=== PATIENT | female | born 1960 | race Caucasian/White ===

== ENCOUNTER 2017-08-24 11:50 | Inpatient (IN) | payer SELFPAY ==
[~2017-08-24] VITALS: Ht 165.1 cm; Wt 89.8 kg
[2017-08-24 12:47] LABS: HEMATOCRIT 30.5 % (36-48); MEAN CORPUSCULAR HEMOGLOBIN 22.9 pg (27.0-33.0); MEAN CORPUSCULAR HGB CONC 31.8 g/dL (32.0-36.0); PLATELET COUNT (AUTO) 360 K/uL (130-400); RED BLOOD CELL COUNT(AUTO) 4.24 MIL/uL (4.00-5.50); RED CELL DISTRIBUTION WIDTH 18.6 % (11.0-15.5)
[2017-08-24] MEDS ORDERED: ONDANSETRON HCL 4 MG/2 ML VIAL ONE (12:49)
[2017-08-24] MEDS ORDERED: MORPHINE SULFATE 2 MG/ML 1ML SYG ONE ×2 (12:49→14:37)
[2017-08-24] MEDS ORDERED: SODIUM CHLORIDE 0.9% 1000ML 1,000 ML IV ONE ×3 (12:50→16:10)
[2017-08-24 12:56] LABS: WHITE BLOOD COUNT (AUTO) 30.8 K/uL (4.8-10.8)
[2017-08-24 13:11] LABS: CREATININE 1.1 mg/dL (0.5-1.5); POTASSIUM 3.6 mmol/L (3.5-5.1)
[2017-08-24 13:16] LABS: ALBUMIN 2.9 g/dL (3.5-5.0); BILIRUBIN,TOTAL 1.4 mg/dL (0.2-1.0); TOTAL PROTEIN, SERUM 7.8 g/dL (6.0-8.3)
[2017-08-24 13:40] LABS: BAND NEUTROPHILS % (MANUAL) 12 % (0-2); LYMPHOCYTES % (MANUAL) 3 % (22-44); MYELOCYTES % 1 % (0-0); SEGMENTED NEUTROPHILS % 84 % (40-70)
[2017-08-24 13:41] LABS: MAN.DIFF COMMENT-IMPRESSION MANUAL DIFFERENTIAL
[2017-08-24] MEDS ORDERED: IPRATROPIUM/ALBUTEROL SULFATE 3 ML SOLUTION IH ONE (14:02)
[2017-08-24] MEDS ORDERED: CEFTRIAXONE SODIUM 1 GM ONE (14:03)
[2017-08-24] MEDS ORDERED: SODIUM CHLORIDE 0.9% 50 ML IV ONE (14:04)
[2017-08-24] MEDS ORDERED: IOPAMIDOL-370 100 ML VIAL IV ONE (14:27)
[2017-08-24] MEDS ORDERED: CEFTRIAXONE 1GM/D5W 50ML 50 ML IV SCH (15:15)
[2017-08-24 17:02] VITALS: BP 123/78
[2017-08-24] MEDS: AZITHROMYCIN 500MG+NS 250ML 250 ML IV SCH (18:27)
[2017-08-24] MEDS: MORPHINE SULFATE 2 MG/ML 1ML SYG IVP PRN ×2 (18:28→23:53)
[2017-08-24] MEDS: ONDANSETRON HCL 4 MG/2 ML VIAL IVP PRN ×2 (18:30→23:53)
[2017-08-24] MEDS: SODIUM CHLORIDE 0.9% 1000ML 1,000 ML IV SCH (18:35)
[2017-08-24] MEDS: FLU VACC QS2017-18 36MOS UP/PF 60 MCG/0.5 ML ML IM SCH (18:45)
[2017-08-24 19:46] VITALS: BP 106/61
[2017-08-24] MEDS: IPRATROPIUM/ALBUTEROL SULFATE 3 ML SOLUTION IH SCH ×2 (19:51→22:03)
[2017-08-24 23:46] VITALS: BP 98/61
[2017-08-25] MEDS: SODIUM CHLORIDE 0.9% 1000ML 1,000 ML IV SCH ×4 (01:26→22:23)
[2017-08-25] MEDS: IPRATROPIUM/ALBUTEROL SULFATE 3 ML SOLUTION IH SCH ×6 (02:57→22:34)
[2017-08-25 03:37] VITALS: BP 107/54
[2017-08-25 04:43] LABS: CREATININE 0.9 mg/dL (0.5-1.5); MAGNESIUM 2.3 mg/dL (1.80-2.40); POTASSIUM 3.5 mmol/L (3.5-5.1)
[2017-08-25 04:55] LABS: HEMATOCRIT 31.5 % (36-48); MEAN CORPUSCULAR HEMOGLOBIN 23.3 pg (27.0-33.0); MEAN CORPUSCULAR VOLUME 72.8 fL (79-99); PLATELET COUNT (AUTO) 262 K/uL (130-400); RED BLOOD CELL COUNT(AUTO) 4.33 MIL/uL (4.00-5.50); RED CELL DISTRIBUTION WIDTH 18.8 % (11.0-15.5); WHITE BLOOD COUNT (AUTO) 18.9 K/uL (4.8-10.8)
[2017-08-25] MEDS: ONDANSETRON HCL 4 MG/2 ML VIAL IVP PRN ×4 (05:17→23:54)
[2017-08-25] MEDS: MORPHINE SULFATE 2 MG/ML 1ML SYG IVP PRN ×7 (05:18→23:55)
[2017-08-25 05:38] LABS: LYMPHOCYTES % (MANUAL) 16 % (22-44); MAN.DIFF COMMENT-IMPRESSION MANUAL DIFFERENTIAL; MONOCYTES % (MANUAL) 5 % (2-9); PLATELET MORPHOLOGY COMMENT ADEQUATE; SEGMENTED NEUTROPHILS % 79 % (40-70)
[2017-08-25 07:30] VITALS: BP 111/64
[2017-08-25] MEDS: ENOXAPARIN SODIUM 40 MG/0.4 ML SYRINGE SQ SCH (09:32)
[2017-08-25] MEDS: PANTOPRAZOLE SODIUM 40 MG TABLET.DR PO SCH (09:32)
[2017-08-25 11:26] VITALS: BP 100/53
[2017-08-25] MEDS: WATER FOR INJECTION,STERILE 5 ML VIAL INJ SCH (14:29)
[2017-08-25] MEDS: CEFTRIAXONE SODIUM 1 GM IVP SCH (14:29)
[2017-08-25 16:20] VITALS: BP 119/64
[2017-08-25] MEDS: AZITHROMYCIN 500MG+NS 250ML 250 ML IV SCH (17:00)
[2017-08-25 19:47] VITALS: BP 105/61
[2017-08-26] VITALS (7 sets, daily range): BP systolic 97–137; BP diastolic 49–77
[2017-08-26] MEDS: IPRATROPIUM/ALBUTEROL SULFATE 3 ML SOLUTION IH SCH ×6 (02:12→21:47)
[2017-08-26] MEDS: MORPHINE SULFATE 2 MG/ML 1ML SYG IVP PRN ×2 (02:24→06:50)
[2017-08-26 04:43] LABS: BASOPHILS % (AUTO) 0.2 % (0.0-5.0); EOSINOPHILS % (AUTO) 0.4 % (0.0-8.0); HEMATOCRIT 26.3 % (36-48); LYMPHOCYTES % (AUTO) 7.2 % (21.0-51.0); MEAN CORPUSCULAR HEMOGLOBIN 23.2 pg (27.0-33.0); MEAN CORPUSCULAR VOLUME 72.3 fL (79-99); MONOCYTES % (AUTO) 7.1 % (3.0-13.0); NEUTROPHILS % (AUTO) 85.1 % (40.0-77.0); PLATELET COUNT (AUTO) 341 K/uL (130-400); RED BLOOD CELL COUNT(AUTO) 3.65 MIL/uL (4.00-5.50); WHITE BLOOD COUNT (AUTO) 15.5 K/uL (4.8-10.8)
[2017-08-26 04:54] LABS: ALBUMIN 2.2 g/dL (3.5-5.0); BILIRUBIN,TOTAL 0.6 mg/dL (0.2-1.0); CREATININE 0.8 mg/dL (0.5-1.5); POTASSIUM 3.2 mmol/L (3.5-5.1); TOTAL PROTEIN, SERUM 6.6 g/dL (6.0-8.3)
[2017-08-26] MEDS: ONDANSETRON HCL 4 MG/2 ML VIAL IVP PRN (06:51)
[2017-08-26] MEDS: PANTOPRAZOLE SODIUM 40 MG TABLET.DR PO SCH (08:41)
[2017-08-26] MEDS: ENOXAPARIN SODIUM 40 MG/0.4 ML SYRINGE SQ SCH (08:41)
[2017-08-26] MEDS ORDERED: POTASSIUM CHLORIDE 20 MEQ ERTAB PO SCH (11:30)
[2017-08-26] MEDS: WATER FOR INJECTION,STERILE 5 ML VIAL INJ SCH (12:24)
[2017-08-26] MEDS: CEFTRIAXONE SODIUM 1 GM IVP SCH (12:24)
[2017-08-26] MEDS ORDERED: POTASSIUM CHLORIDE 10% ELIXIR 20 MEQ/15 ML UDCUP PO PRN (16:30)
[2017-08-26] MEDS ORDERED: LIDOCAINE HCL-MPF 1% 2ML VIAL IVP PRN (16:30)
[2017-08-26] MEDS ORDERED: POTASSIUM CHLORIDE 20MEQ/100ML 100 ML IV PRN (16:30)
[2017-08-26] MEDS ORDERED: ACETAMINOPHEN 325 MG TAB ONE (20:06)
[2017-08-26] MEDS: POTASSIUM CHLORIDE 20 MEQ ERTAB PO PRN (20:11)
[2017-08-26] MEDS: AZITHROMYCIN 500MG+NS 250ML 250 ML IV SCH (20:12)
[2017-08-27] MEDS: IPRATROPIUM/ALBUTEROL SULFATE 3 ML SOLUTION IH SCH ×6 (01:27→22:28)
[2017-08-27 03:15] VITALS: BP 129/81
[2017-08-27 03:52] LABS: HEMATOCRIT 27.2 % (36-48); MEAN CORPUSCULAR HGB CONC 32.4 g/dL (32.0-36.0); MEAN CORPUSCULAR VOLUME 71.1 fL (79-99); PLATELET COUNT (AUTO) 383 K/uL (130-400); RED BLOOD CELL COUNT(AUTO) 3.82 MIL/uL (4.00-5.50); RED CELL DISTRIBUTION WIDTH 18.7 % (11.0-15.5); WHITE BLOOD COUNT (AUTO) 15.3 K/uL (4.8-10.8)
[2017-08-27 04:15] LABS: ALBUMIN 2.2 g/dL (3.5-5.0); CREATININE 0.7 mg/dL (0.5-1.5); POTASSIUM 3.4 mmol/L (3.5-5.1); TOTAL PROTEIN, SERUM 6.9 g/dL (6.0-8.3)
[2017-08-27] MEDS: POTASSIUM CHLORIDE 20 MEQ ERTAB PO PRN ×3 (05:42→21:11)
[2017-08-27] MEDS: ENOXAPARIN SODIUM 40 MG/0.4 ML SYRINGE SQ SCH (07:22)
[2017-08-27] MEDS: PANTOPRAZOLE SODIUM 40 MG TABLET.DR PO SCH (07:22)
[2017-08-27 07:25] VITALS: BP 148/77
[2017-08-27] MEDS ORDERED: IPRATROPIUM 0.5 MG/2.5 ML INH IH ONE (10:52)
[2017-08-27] MEDS ORDERED: ALBUTEROL SULFATE 0.083% 2.5 MG/3 ML INH IH ONE (10:52)
[2017-08-27 11:13] VITALS: BP 130/68
[2017-08-27] MEDS: ACETAMINOPHEN 325 MG TAB PO PRN (11:14)
[2017-08-27] MEDS: MORPHINE SULFATE 2 MG/ML 1ML SYG IVP PRN ×3 (12:22→21:10)
[2017-08-27] MEDS: ONDANSETRON HCL 4 MG/2 ML VIAL IVP PRN ×3 (12:26→21:11)
[2017-08-27] MEDS: WATER FOR INJECTION,STERILE 5 ML VIAL INJ SCH (14:24)
[2017-08-27] MEDS: CEFTRIAXONE SODIUM 1 GM IVP SCH (14:24)
[2017-08-27] MEDS ORDERED: SODIUM CHLORIDE 3% FOR INHALATION 4 ML/AMP VIAL.NEB IH ONE (14:53)
[2017-08-27 16:25] VITALS: BP 144/72
[2017-08-27] MEDS: FLU VACC QS2017-18 36MOS UP/PF 60 MCG/0.5 ML ML IM SCH (18:45)
[2017-08-27 19:31] VITALS: BP 139/78
[2017-08-27] MEDS: AZITHROMYCIN 500MG+NS 250ML 250 ML IV SCH (21:09)
[2017-08-27 23:19] VITALS: BP 130/78
[2017-08-28] MEDS: IPRATROPIUM/ALBUTEROL SULFATE 3 ML SOLUTION IH SCH ×4 (01:56→18:37)
[2017-08-28 03:34] VITALS: BP 133/70
[2017-08-28] MEDS: ACETAMINOPHEN 325 MG TAB PO PRN ×2 (03:42→09:59)
[2017-08-28 04:46] LABS: HEMATOCRIT 24.1 % (36-48); MEAN CORPUSCULAR HEMOGLOBIN 23.7 pg (27.0-33.0); MEAN CORPUSCULAR HGB CONC 33.2 g/dL (32.0-36.0); MEAN CORPUSCULAR VOLUME 71.2 fL (79-99); PLATELET COUNT (AUTO) 370 K/uL (130-400); RED BLOOD CELL COUNT(AUTO) 3.38 MIL/uL (4.00-5.50); RED CELL DISTRIBUTION WIDTH 18.9 % (11.0-15.5); WHITE BLOOD COUNT (AUTO) 15.4 K/uL (4.8-10.8)
[2017-08-28 04:48] LABS: CREATININE 0.6 mg/dL (0.5-1.5); POTASSIUM 3.8 mmol/L (3.5-5.1)
[2017-08-28 05:25] LABS: BAND NEUTROPHILS % (MANUAL) 29 % (0-2); EOSINOPHILS % (MANUAL) 4 % (1-6); LYMPHOCYTES % (MANUAL) 10 % (22-44); MAN.DIFF COMMENT-IMPRESSION MANUAL DIFFERENTIAL; MONOCYTES % (MANUAL) 1 % (2-9); PLATELET MORPHOLOGY COMMENT ADEQUATE; SEGMENTED NEUTROPHILS % 56 % (40-70)
[2017-08-28] MEDS: POTASSIUM CHLORIDE 20 MEQ ERTAB PO PRN (06:10)
[2017-08-28 07:00] VITALS: BP 149/80
[2017-08-28] MEDS: PANTOPRAZOLE SODIUM 40 MG TABLET.DR PO SCH (09:51)
[2017-08-28] MEDS: ENOXAPARIN SODIUM 40 MG/0.4 ML SYRINGE SQ SCH (09:52)
[2017-08-28] MEDS: METHYLPREDNISOLONE SOD SUCC 40MG/ML 1ML IVP SCH ×2 (09:52→16:36)
[2017-08-28] MEDS ORDERED: IPRATROPIUM/ALBUTEROL SULFATE 3 ML SOLUTION IH PRN (10:00)
[2017-08-28 11:00] VITALS: BP 157/73
[2017-08-28] MEDS ORDERED: SODIUM CHLORIDE 3% FOR INHALATION 4 ML/AMP VIAL.NEB IH ONE (11:08)
[2017-08-28] MEDS ORDERED: ALBUTEROL SULFATE 0.083% 2.5 MG/3 ML INH IH SCH (12:00)
[2017-08-28] MEDS ORDERED: IPRATROPIUM 0.5 MG/2.5 ML INH IH SCH (12:00)
[2017-08-28] MEDS: CEFTRIAXONE SODIUM 1 GM IVP SCH (14:10)
[2017-08-28] MEDS: WATER FOR INJECTION,STERILE 5 ML VIAL INJ SCH (14:11)
[2017-08-28 16:00] VITALS: BP 147/78
[2017-08-28 19:35] VITALS: BP 158/88
[2017-08-28] MEDS: AZITHROMYCIN 500MG+NS 250ML 250 ML IV SCH (21:20)
[2017-08-28 21:21] LABS: APPEARANCE,URINE Clear (CLEAR); BILIRUBIN,URINE Negative (NEGATIVE); COLOR,URINE Yellow (YELLOW); GLUCOSE, URINE (UA) Negative (NEGATIVE); KETONES,URINE 15 mg/dL (NEGATIVE); LEUKOCYTE ESTERASE ,URINE Negative (NEGATIVE); NITRATE,URINE Negative (NEGATIVE); OCCULT BLOOD,URINE Negative (NEGATIVE); PROTEIN,URINE POS 1+ (NEGATIVE)
[2017-08-28 21:27] LABS: BACTERIA,URINE None Seen /HPF (None Seen); RBC,URINE None Seen /HPF (0-1); WBC,URINE None Seen /HPF (0-1)
[2017-08-28 23:16] VITALS: BP 140/70
[2017-08-29] MEDS: METHYLPREDNISOLONE SOD SUCC 40MG/ML 1ML IVP SCH ×3 (00:11→16:56)
[2017-08-29] MEDS: IPRATROPIUM/ALBUTEROL SULFATE 3 ML SOLUTION IH SCH ×4 (01:10→19:39)
[2017-08-29 03:40] VITALS: BP 151/86
[2017-08-29] MEDS: ONDANSETRON HCL 4 MG/2 ML VIAL IVP PRN (03:44)
[2017-08-29 07:00] VITALS: BP 130/72
[2017-08-29] MEDS: PANTOPRAZOLE SODIUM 40 MG TABLET.DR PO SCH (10:06)
[2017-08-29] MEDS: ENOXAPARIN SODIUM 40 MG/0.4 ML SYRINGE SQ SCH (10:08)
[2017-08-29 11:00] VITALS: BP 133/76
[2017-08-29] MEDS: CEFTRIAXONE SODIUM 1 GM IVP SCH (15:13)
[2017-08-29] MEDS: WATER FOR INJECTION,STERILE 5 ML VIAL INJ SCH (15:13)
[2017-08-29 16:00] VITALS: BP 134/67
[2017-08-29 19:43] VITALS: BP 139/76
[2017-08-29] MEDS: AZITHROMYCIN 500MG+NS 250ML 250 ML IV SCH (20:48)
[2017-08-29 23:46] VITALS: BP 133/69
[2017-08-30] MEDS: IPRATROPIUM/ALBUTEROL SULFATE 3 ML SOLUTION IH SCH ×4 (00:06→18:40)
[2017-08-30] MEDS: METHYLPREDNISOLONE SOD SUCC 40MG/ML 1ML IVP SCH ×2 (00:16→08:47)
[2017-08-30 03:33] LABS: HEMATOCRIT 26.6 % (36-48); MEAN CORPUSCULAR HEMOGLOBIN 23.2 pg (27.0-33.0); MEAN CORPUSCULAR HGB CONC 32.3 g/dL (32.0-36.0); MEAN CORPUSCULAR VOLUME 71.9 fL (79-99); NUCLEATED RED BLOOD CELLS 0.1 % (0.0-0.19); PLATELET COUNT (AUTO) 559 K/uL (130-400); RED CELL DISTRIBUTION WIDTH 19.4 % (11.0-15.5); WHITE BLOOD COUNT (AUTO) 19.2 K/uL (4.8-10.8)
[2017-08-30 03:38] VITALS: BP 135/80
[2017-08-30] MEDS: ONDANSETRON HCL 4 MG/2 ML VIAL IVP PRN (03:43)
[2017-08-30 04:00] LABS: BAND NEUTROPHILS % (MANUAL) 8 % (0-2); LYMPHOCYTES % (MANUAL) 12 % (22-44); MAN.DIFF COMMENT-IMPRESSION MANUAL DIFFERENTIAL; MONOCYTES % (MANUAL) 4 % (2-9); SEGMENTED NEUTROPHILS % 76 % (40-70)
[2017-08-30 04:01] LABS: PLATELET MORPHOLOGY COMMENT INCREASED
[2017-08-30 07:40] VITALS: BP 125/74
[2017-08-30] MEDS: PANTOPRAZOLE SODIUM 40 MG TABLET.DR PO SCH (08:47)
[2017-08-30] MEDS: ENOXAPARIN SODIUM 40 MG/0.4 ML SYRINGE SQ SCH (08:48)
[2017-08-30 11:15] VITALS: BP 132/71
[2017-08-30] MEDS: CEFTRIAXONE SODIUM 1 GM IVP SCH (14:18)
[2017-08-30] MEDS: WATER FOR INJECTION,STERILE 5 ML VIAL INJ SCH (14:18)
[2017-08-30] MEDS: POTASSIUM CHLORIDE 20 MEQ ERTAB PO PRN ×2 (15:27→18:40)
[2017-08-30 16:46] VITALS: BP 170/87
[2017-08-30 19:34] VITALS: BP 135/62
[2017-08-30] MEDS: AZITHROMYCIN 500MG+NS 250ML 250 ML IV SCH (22:09)
[2017-08-30 23:37] VITALS: BP 136/77
[2017-08-31] MEDS: IPRATROPIUM/ALBUTEROL SULFATE 3 ML SOLUTION IH SCH ×3 (00:27→11:08)
[2017-08-31 03:40] VITALS: BP 124/53
[2017-08-31 05:21] LABS: CREATININE 0.7 mg/dL (0.5-1.5); POTASSIUM 3.4 mmol/L (3.5-5.1)
[2017-08-31 05:30] LABS: HEMATOCRIT 25.6 % (36-48); MEAN CORPUSCULAR HGB CONC 31.8 g/dL (32.0-36.0); MEAN CORPUSCULAR VOLUME 72.2 fL (79-99); PLATELET COUNT (AUTO) 569 K/uL (130-400); RED BLOOD CELL COUNT(AUTO) 3.55 MIL/uL (4.00-5.50); RED CELL DISTRIBUTION WIDTH 19.2 % (11.0-15.5); WHITE BLOOD COUNT (AUTO) 16.4 K/uL (4.8-10.8)
[2017-08-31 05:46] LABS: BAND NEUTROPHILS % (MANUAL) 5 % (0-2); EOSINOPHILS % (MANUAL) 1 % (1-6); LYMPHOCYTES % (MANUAL) 19 % (22-44); MAN.DIFF COMMENT-IMPRESSION MANUAL DIFFERENTIAL; METAMYELOCYTES % 1 % (0-0); MONOCYTES % (MANUAL) 1 % (2-9); SEGMENTED NEUTROPHILS % 73 % (40-70)
[2017-08-31 07:47] VITALS: BP 141/79
[2017-08-31] MEDS: ENOXAPARIN SODIUM 40 MG/0.4 ML SYRINGE SQ SCH (08:01)
[2017-08-31] MEDS: PANTOPRAZOLE SODIUM 40 MG TABLET.DR PO SCH (08:01)
[2017-08-31] MEDS ORDERED: PREDNISONE 20 MG TABLET PO SCH (09:00)
[2017-08-31 11:23] VITALS: BP 156/80
[2017-08-31] MEDS: CEFTRIAXONE SODIUM 1 GM IVP SCH (13:41)
[2017-08-31] MEDS: WATER FOR INJECTION,STERILE 5 ML VIAL INJ SCH (13:41)
[2017-08-31 16:45] VITALS: BP 132/77
[2017-08-31] MEDS: FLU VACC QS2017-18 36MOS UP/PF 60 MCG/0.5 ML ML IM SCH (19:51)
== END 2017-08-31 20:00 | disposition home or self-care (01) | DRG 871 ==
LOC: EDH 11:50 → EDBD 11:50 → EDHIP 11:51 → 2AH 16:26
PROVIDERS: ADMIT Family Medicine; ATTEND Family Medicine
DX: A41.9 Sepsis, unspecified organism (principal); J18.9 Pneumonia, unspecified organism; J96.00 Acute respiratory failure, unspecified whether with hypoxia or hypercapnia; E87.1 Hypo-osmolality and hyponatremia; J44.0 Chronic obstructive pulmonary disease with (acute) lower respiratory infection; J44.1 Chronic obstructive pulmonary disease with (acute) exacerbation; E44.0 Moderate protein-calorie malnutrition; D64.9 Anemia, unspecified; Z87.442 Personal history of urinary calculi; Z87.891 Personal history of nicotine dependence; Z68.32 Body mass index [BMI] 32.0-32.9, adult
CPT/HCPCS: 36415; 71010; 71045; 71046; 71275; 80048; 80053; 81001; 83605; 83735; 85025; 85027; 85378; 87040; 87071; 87633; 87804; 93005; 93970; 94640; 94664; 99291; J0456; J0696; J1650; J2405; J2920; J7030; Q2038; Q9967